=== PATIENT | male | born 1975 ===

== ENCOUNTER → 2019-01-18 07:47 | Outpatient (CLI) | payer OTHER | END | disposition home or self-care (01) | LOC: RAD 07:47 | DX: M99.03 Segmental and somatic dysfunction of lumbar region (principal) ==

== ENCOUNTER 2020-03-02 21:00 | Emergency (ER) | payer OTHER ==
[~2020-03-02] VITALS: Ht 170.2 cm; Wt 142.9 kg
[2020-03-02] MEDS ORDERED: DIOVAN HCT 3201 EACH (21:33)
[2020-03-02] MEDS ORDERED: TOPROL XL200 MG (21:34)
== END 2020-03-03 00:10 | disposition home or self-care (01) ==
LOC: ER 21:00
DX: B34.9 Viral infection, unspecified (principal); A90 Dengue fever [classical dengue]; Z03.818 Encounter for observation for suspected exposure to other biological agents ruled out; R50.9 Fever, unspecified